=== PATIENT | female | born 1975 | race Asian ===

== ENCOUNTER 2024-09-24 12:55 | Emergency (ER) | payer MEDICAID ==
[~2024-09-24] VITALS: Ht 154.9 cm; Wt 54.5 kg
[2024-09-24 16:12] VITALS: BP 127/63; PULSE 73; RESP 16; TEMP 98.1; O2SAT 99
== END 2024-09-24 16:13 | disposition home or self-care (01) ==
LOC: ER 12:57
DX: J22 Unspecified acute lower respiratory infection (principal); F20.9 Schizophrenia, unspecified
CPT/HCPCS: 93005; 99283

== ENCOUNTER 2025-07-27 17:28 | Emergency (ER) | payer MEDICAID ==
[~2025-07-27] VITALS: Ht 157.5 cm; Wt 77.7 kg
[2025-07-27 17:32] VITALS: BP 134/79; PULSE 94; RESP 16; O2SAT 95
[2025-07-27] MEDS: LIDOcaine 1% W/epiNEPHrine 1:100,000 20ml vial IJ ONE (17:48)
[2025-07-27] MEDS: TETanus/Pertussis (Acell)/Diphther VAC/PF (Tdap-Adult) 0.5ml syringe IMVAC ONE (17:50)
--- NOTE | 2025-07-27 17:50 | Physician Documentation ---
History of Present Illness ~ Chief Complaint: Mechanical Fall Stated Complaint: FACE LAC Time Seen by MD: 17:36 HPI This is a 49-year-old female who presents with a laceration to her right cheek after a trip and fall striking a garbage can, patient reports no loss of conscio usness and no other injuries. Tetanus within 5 Years?: No (UNK) Medication Reconciliation Allergies: Coded Allergies: No Known Allergies (Unverified , 07/27/25) Past Medical History Past Medical History: No Pertinent History Past Surgical History: noncontributory Alcohol Use: None Drug Use: none Lives with: Spouse Lives In: Home Review of Systems ROS As stated above in the HPI, otherwise all systems are reviewed and negative. Physical Exam Vital Signs: Temperature: 97.2, Source: Temporal, Heart Rate: 94, Respiratory Rate: 16, BP: 134/79, Pulse Oximetry: 95, Weight: 77.700 Oxygen Flow Rate: 0 Physical Exam VITALS: Reviewed and as above. GENERAL: Alert, nontoxic appearing, no apparent distress. HEENT: PERRLA, EOMI, no significant facial swelling RESPIRATORY: No increased work of breathing, no respiratory distress, speaking in full clear sentences SKIN: 5 cm laceration to right upper cheek Procedures Laceration Repair : Location: Right upper cheek of face Length (cm): 5 Anesthesia: Lidocaine w/ Epi Volume Anesthetic (mls): 6 Prep: irrigated by nurse Irrigated w/ Saline (mls): 500 Margins: revised Foreign Body: not identified Repaired: skin Wound Repaired With: sutures Suture Size/Type: 6-0 Number of Superficial Sutures: 15 Layer Closure?: No Dressing Applied: simple Splint Applied?: No Sling Applied?: No Tolerated Procedure Well?: yes, no complications Progress Results/Orders Results/Orders Orders - DICK CAPPS Laceration/I&D Tray Set Up (07/27/25 17:35) Wound Care Orders (07/27/25 17:35) Completed Orders - DICK CAPPS Lidocaine 1% W/Epi 1:100,000 (Xylocaine (07/27/25 17:35) Tetanus/Pertuss/Diph Acell/Pf (Boostrix (07/27/25 17:35) Vital Signs 07/27/25 07/27/25 17:32 19:18 Temp 97.2 97.2 Pulse 94 Resp 16 B/P (MAP) 134/79 Pulse Ox 95 O2 Flow Rate 0 Medical Decision Making Additional information obtaine: N/A Findings This is a 49-year-old female who presented with a laceration to her right upper cheek after a trip and fall where she struck her cheek on a trash can, patient reported no other injuries no other injuries found on physical exam, patient is otherwise well appearing. On physical exam laceration was approximately 5 cm long involving subcutaneous tissue though not involving deeper structures or musculature the laceration was successfully repaired utilizing 15 simple interrupted sutures. Remainder of physical exam benign and patient appropriate for outpatient follow up. Patient provided home care instructions return to care precautions, and follow up instructions which she verbalized understanding of. Differential Dx:Considerations: Include: Closed head injury, Fracture(s), Intraabdominal injury, Pneumothorax, Vascular injury, Abrasion(s), Contusion(s), Foreign body(s), Hematoma(s), Laceration(s), Other (Fracture, orbital fracture) Departure Time of Disposition: 19:05 Disposition: 01 HOME / SELF CARE / HOMELESS Impression: Primary Impression: Laceration of right cheek without complication Qualified Codes: S01.411A - Laceration without foreign body of right cheek and temporomandibular area, initial encounter Condition: Improved Discharge Instructions: Facial Laceration, [id number] Additional Instructions: Keep the area clean dry and covered, do not soak the area or submerge it in water, you may wash the area gently after 24 hours. Please return to your choice of medical provider in five days for evaluation for suture removal, you may return here, an urgent care, or your primary care for this. Please follow up with your primary care provider in the next few days. Please return to the emergency department for any new or worsening concerning symptoms. Referrals: NO PRIMARY CARE PROVIDER (PCP) Education Educated: Patient Educated regarding: diagnosis, treatment, prognosis, need for follow up Signature Scribe Signature: No scribe Attestation: The note accurately reflects work and decisions made by me.PATRICIA Swanson 07/28/25 01:44 Parts of this note were created using [employer] voice recognition software program. While efforts were made to correct any mistakes made by this voice recognition software program, nonsensical phrases may remain in this note. In addition, there may be errors and syntax, grammar, content and spelling. DICK CAPPS [facility] Jul 27, 2025 17:50
[2025-07-27 19:18] VITALS: TEMP 97.2
== END 2025-07-27 19:32 | disposition home or self-care (01) ==
LOC: ER 17:28
DX: S01.411A Laceration without foreign body of right cheek and temporomandibular area, initial encounter (principal); W01.198A Fall on same level from slipping, tripping and stumbling with subsequent striking against other object, initial encounter; Y93.89 Activity, other specified; Y92.89 Other specified places as the place of occurrence of the external cause; Y99.8 Other external cause status
CPT/HCPCS: 12013; 90471; 90715; 99284; J7030; A6258; A6449

== ENCOUNTER 2025-08-01 11:08 | Emergency (ER) | payer MEDICAID ==
[~2025-08-01] VITALS: Ht 154.9 cm; Wt 76.9 kg
[2025-08-01 11:11] VITALS: BP 136/87; PULSE 68; RESP 19; TEMP 98.7; O2SAT 99
--- NOTE | 2025-08-01 11:37 | Physician Documentation ---
History of Present Illness ~ Chief Complaint: Suture Removal Stated Complaint: SUTURE REMOVAL Time Seen by MD: 11:23 HPI 49-year-old female presents to the ED to have her sutures removed. She had his laceration sutured proximally seven days ago on her right cheek of her face. Denies any increased pain or swelling or drainage Tetanus Within 5 Years: No (UNK) Medication Reconciliation Allergies: Coded Allergies: No Known Allergies (Unverified , 08/01/25) Past Medical History Past Medical History: No Pertinent History Past Surgical History: noncontributory Alcohol Use: None Drug Use: none Lives with: Spouse Lives In: Home Review of Systems All Other Systems at this time: Reviewed and Negative ROS As stated above in the HPI, otherwise all systems are reviewed and negative. Physical Exam Vital Signs: Temperature: 98.7, Source: Oral, Heart Rate: 68, Respiratory Rate: 19, BP: 136/87, Pulse Oximetry: 99, Weight: 76.900 Oxygen Flow Rate: 0 Physical Exam General: Alert, no apparent distress. HEENT: PERRL, EOMI, no injection, moist mucous membranes. well ap[proxmated laceration 15 + sutures Extremities: Normal range of motion, no deformity. Neurologic: Oriented x4. Psychiatric: Normal mood and affect. Skin: Normal color, warm and dry. No edema, no ecchymosis. Progress Results/Orders Results/Orders Vital Signs 08/01/25 11:11 Temp 98.7 Pulse 68 Resp 19 B/P (MAP) 136/87 Pulse Ox 99 O2 Flow Rate 0 Medical Decision Making Additional information obtaine: old records Findings Sutures removed by the ED nurse without difficulty Differential Dx:Considerations: Include: Cellulitis, Suture removal, Wound dehiscence, Other Departure Disposition: 01 HOME / SELF CARE / HOMELESS Impression: Primary Impression: Suture check Condition: Stable Discharge Instructions: Suture Removal, Care After Referrals: NO PRIMARY CARE PROVIDER (PCP) Signature Scribe Signature: y Attestation: Scribed for Per Gee Medicare Sales Representative by Per Jordan NP . 08/01/25 16:07 PER GEE NP Aug 01, 2025 11:37
== END 2025-08-01 11:44 | disposition home or self-care (01) ==
LOC: ER 11:08
DX: S01.411D Laceration without foreign body of right cheek and temporomandibular area, subsequent encounter (principal); X58.XXXD Exposure to other specified factors, subsequent encounter
CPT/HCPCS: 99282